=== PATIENT | female | born 1940 | race Caucasian/White ===

== ENCOUNTER → 2016-12-09 | Outpatient (CLI) | payer OTHER, BC ==
--- NOTE | 2016-12-09 09:36 | RAD ---
HISTORY: Left knee pain, nontraumatic Study: Left knee three view Comparison: None Findings: There is no evidence for fracture, lytic, or blastic lesion. No joint erosion or joint effusion is p resent. There is marked degenerative medial compartment narrowing with some associated pointing of t he tibial spines and femoral osteophyte formation. IMPRESSION: Marked degenerative medial compartment narrowing Reported By:
== END ==
LOC: RAD 08:51
PROVIDERS: ATTEND Specialist
DX: M25.562 Pain in left knee (principal)
CPT/HCPCS: 73564

== ENCOUNTER 2018-01-11 11:02 | Inpatient (IN) ==
[2018-01-11] MEDS ORDERED: TUSSIONEX PENNKINETIC SUSP PO PRN (12:22)
[2018-01-11] MEDS ORDERED: SALINE 3% 15 ML NEB TX ONE (12:29)
[2018-01-11] MEDS ORDERED: DUONEB 0.5 MG/3 MG ONE (12:29)
[2018-01-11 12:48] LABS: BASOPHILS % (AUTO) 0.7 % (0.2-1.0); EOSINOPHILS # (AUTO) 0.1 x10^3/uL (0.0-0.2); EOSINOPHILS % (AUTO) 1.2 % (0.9-2.9); HEMATOCRIT 35.3 % (36.0-47.0); LYMPHOCYTES # (AUTO) 1.5 X10^3/uL (1.3-2.9); MEAN CORPUSCULAR HEMOGLOBIN 32.4 pg (27.0-34.0); MEAN CORPUSCULAR VOLUME 95.2 fL (80.0-100.0); MEAN PLATELET VOLUME 6.7 fL (7.4-11.0); MONOCYTES # (AUTO) 0.7 x10^3/uL (0.3-0.8); MONOCYTES % (AUTO) 11.1 % (0.0-13.0); NEUTROPHILS # (AUTO) 3.8 x10^3/uL (2.2-4.8); PLATELET COUNT 250 X10^3/uL (150.0-450.0); RED BLOOD COUNT 3.71 X10^6/uL (3.5-5.4); RED CELL DISTRIBUTION WIDTH 13.3 % (11.6-16.5); WHITE BLOOD COUNT 6.1 X10^3/uL (3.6-10.0)
[2018-01-11 13:02] LABS: ALANINE AMINOTRANSFERASE 23 Units/L (12-78); ALBUMIN 3.6 g/dL (3.4-5.0); ALKALINE PHOSPHATASE 79 Units/L (46-116); ASPARTATE AMINO TRANSFERASE 12 Units/L (15-37); BLOOD UREA NITROGEN 18 mg/dL (7-18); CALCIUM 9.1 mg/dL (8.5-10.1); CARBON DIOXIDE 30.9 mmol/L (21-32); CHLORIDE 103 mmol/L (98-107); COR NA(FOR HYPERGLY) 141 mmol/L (136-145); CREATININE 0.67 mg/dL (0.55-1.02); SODIUM 141 mmol/L (136-145); TOTAL PROTEIN 7.2 g/dL (6.4-8.2); eGFR NON BLACK RACES > 60 (>60)
[2018-01-11] MEDS ORDERED: NS 1/2 1000 ML IV 1,000 ML IV ONE (13:44)
[2018-01-11] MEDS ORDERED: NS 100 ML IV + SPIKE MINIBAG* 100 ML IV ONE ×2 (13:45→20:52)
[2018-01-11] MEDS: NS 1/2 1000 ML IV 1,000 ML IV SCH (14:08)
[2018-01-11] MEDS: ZOSYN VIAL 4.5 GRAMS IV SCH ×2 (14:09→21:14)
[2018-01-11] MEDS: ROBITUSSIN DM PO SCH ×3 (14:09→21:14)
[2018-01-11] MEDS: DUONEB 0.5 MG/3 MG NEB SCH ×3 (14:10→21:55)
--- NOTE | 2018-01-11 14:20 | CT ---
HEAD CT WITHOUT IV CONTRAST CLINICAL INDICATION: Headache and sinusitis TECHNIQUE: Axial CT images from skull base to vertex without IV contrast.Dose reduction techniques in cluding Automated Exposure Control (AEC) and adjustment of mA and kV were utlized. COMPARISON: None FINDINGS: Diffuse patchy and confluent white matter hypoattenuation with associated volume loss. There is no e vidence of acute infarction, intracranial hemorrhage, mass or mass effect, or abnormal extra-axial co llection. The density of the larger dural venous sinuses is normal. Age-related, ex-vacuo dilatation of the ventricles and sulci. The skull base and calvarium are normal. The included paranasal sinuses and mastoid air cells are predominantly clear. IMPRESSION: 1. No acute intracranial abnormality. 2. No evidence of acute or chronic sinus disease. 3. Chronic microangiopathic changes and ex vacuo dilatation of the ventricles and sulci. Reported By:
[2018-01-11 14:39] VITALS: BMI 29.6
--- NOTE | 2018-01-11 14:51 | RAD ---
Exam: Chest two views History: 77-year-old female with possible pneumonia. Cough. Comparison: None Findings: Heart size and pulmonary vasculature within normal limits. Lungs are clear with no infiltrate or sign ificant effusion on either side. Bony thorax is unremarkable as well. Impression: No acute cardiopulmonary abnormality is seen on this exam. Reported By:
[2018-01-12] MEDS: DUONEB 0.5 MG/3 MG NEB SCH ×6 (01:22→21:44)
[2018-01-12] MEDS ORDERED: NS 100 ML IV + SPIKE MINIBAG* 100 ML IV ONE ×3 (05:26→20:25)
[2018-01-12 05:28] LABS: BASOPHILS % (AUTO) 0.9 % (0.2-1.0); EOSINOPHILS # (AUTO) 0.1 x10^3/uL (0.0-0.2); EOSINOPHILS % (AUTO) 2.5 % (0.9-2.9); HEMATOCRIT 33.9 % (36.0-47.0); HEMOGLOBIN 11.6 g/dL (12.0-16.0); LYMPHOCYTES # (AUTO) 1.8 X10^3/uL (1.3-2.9); LYMPHOCYTES % (AUTO) 32.2 % (21.0-51.0); MEAN CORPUSCULAR HEMOGLOBIN 32.3 pg (27.0-34.0); MEAN CORPUSCULAR HGB CONC 34.3 g/dL (33.0-35.0); MEAN CORPUSCULAR VOLUME 94.4 fL (80.0-100.0); MEAN PLATELET VOLUME 6.9 fL (7.4-11.0); MONOCYTES # (AUTO) 0.6 x10^3/uL (0.3-0.8); MONOCYTES % (AUTO) 10.6 % (0.0-13.0); NEUTROPHILS % (AUTO) 53.8 % (42.0-75.0); PLATELET COUNT 240 X10^3/uL (150.0-450.0); RED BLOOD COUNT 3.59 X10^6/uL (3.5-5.4); RED CELL DISTRIBUTION WIDTH 13.3 % (11.6-16.5); WHITE BLOOD COUNT 5.5 X10^3/uL (3.6-10.0)
[2018-01-12] MEDS: ZOSYN VIAL 4.5 GRAMS IV SCH ×3 (05:32→21:01)
[2018-01-12 05:58] LABS: ALANINE AMINOTRANSFERASE 22 Units/L (12-78); ALBUMIN 3.4 g/dL (3.4-5.0); ALKALINE PHOSPHATASE 71 Units/L (46-116); ASPARTATE AMINO TRANSFERASE 14 Units/L (15-37); BLOOD UREA NITROGEN 14 mg/dL (7-18); CALCIUM 8.6 mg/dL (8.5-10.1); CARBON DIOXIDE 31.9 mmol/L (21-32); CHLORIDE 105 mmol/L (98-107); CREATININE 0.71 mg/dL (0.55-1.02); SODIUM 143 mmol/L (136-145); TOTAL PROTEIN 6.8 g/dL (6.4-8.2); eGFR NON BLACK RACES > 60 (>60)
[2018-01-12] MEDS: NS 1/2 1000 ML IV 1,000 ML IV SCH ×3 (07:07→15:45)
[2018-01-12] MEDS ORDERED: ANTIVERT TAB 25 MG PO PRN (10:10)
[2018-01-12] MEDS ORDERED: XANAX PO PRN (10:10)
[2018-01-12] MEDS: ROBITUSSIN DM PO SCH ×4 (10:11→20:50)
[2018-01-12] MEDS ORDERED: POTASSIUM CL 10 MEQ PO SCH (10:15)
[2018-01-12] MEDS ORDERED: PAROXETINE HCL 40 MG PO SCH (10:15)
[2018-01-12] MEDS: ARICEPT TAB 10 MG PO SCH (11:24)
[2018-01-12] MEDS: FLEXERIL TAB 10 MG PO SCH ×2 (11:24→20:51)
[2018-01-12] MEDS: INDERAL TAB 10 MG PO SCH ×2 (11:24→20:50)
[2018-01-12] MEDS: SINGULAIR TAB 10 MG PO SCH (11:24)
[2018-01-12] MEDS: NORVASC TAB 5 MG PO SCH (11:24)
[2018-01-12] MEDS: LASIX PO SCH (11:25)
--- NOTE | 2018-01-12 13:31 | DR.UPDATE ---
H&P Update History and Physical Update: WAS SEEN IN THE OFFICE TODAY. A H&P WAS COMPLETED PRIOR TO ADMISSION. PATIENT HAS BEEN SEEN AND EXAMINED WITH NO CHANGES NOTED TO H&P. Changes noted: NO Yes with the following:
[2018-01-12] MEDS ORDERED: NS 1/2 1000 ML IV 1,000 ML IV ONE (14:24)
[2018-01-12] MEDS: ZOCOR TAB 40 MG PO SCH (20:50)
[2018-01-12] MEDS: MICRO K EXTEN CAP 10 MEQ PO SCH (20:51)
[2018-01-12] MEDS ORDERED: COUMADIN TAB 4 MG PO SCH ×2 (21:00)
[2018-01-13] MEDS: DUONEB 0.5 MG/3 MG NEB SCH ×6 (04:14→21:15)
[2018-01-13] MEDS ORDERED: NS 100 ML IV + SPIKE MINIBAG* 100 ML IV ONE ×3 (05:15→20:47)
[2018-01-13 05:22] LABS: BASOPHILS % (AUTO) 0.6 % (0.2-1.0); EOSINOPHILS # (AUTO) 0.2 x10^3/uL (0.0-0.2); EOSINOPHILS % (AUTO) 3.6 % (0.9-2.9); HEMATOCRIT 33.6 % (36.0-47.0); HEMOGLOBIN 11.6 g/dL (12.0-16.0); LYMPHOCYTES % (AUTO) 34.4 % (21.0-51.0); MEAN CORPUSCULAR HEMOGLOBIN 32.5 pg (27.0-34.0); MEAN CORPUSCULAR HGB CONC 34.4 g/dL (33.0-35.0); MEAN CORPUSCULAR VOLUME 94.5 fL (80.0-100.0); MEAN PLATELET VOLUME 6.6 fL (7.4-11.0); MONOCYTES # (AUTO) 0.6 x10^3/uL (0.3-0.8); NEUTROPHILS # (AUTO) 2.9 x10^3/uL (2.2-4.8); NEUTROPHILS % (AUTO) 50.4 % (42.0-75.0); PLATELET COUNT 252 X10^3/uL (150.0-450.0); RED BLOOD COUNT 3.55 X10^6/uL (3.5-5.4); RED CELL DISTRIBUTION WIDTH 13.2 % (11.6-16.5); WHITE BLOOD COUNT 5.8 X10^3/uL (3.6-10.0)
[2018-01-13 05:28] LABS: ALANINE AMINOTRANSFERASE 22 Units/L (12-78); ALBUMIN 3.3 g/dL (3.4-5.0); ALKALINE PHOSPHATASE 68 Units/L (46-116); ASPARTATE AMINO TRANSFERASE 14 Units/L (15-37); BLOOD UREA NITROGEN 10 mg/dL (7-18); CALCIUM 8.4 mg/dL (8.5-10.1); CARBON DIOXIDE 32.7 mmol/L (21-32); CHLORIDE 106 mmol/L (98-107); CREATININE 0.75 mg/dL (0.55-1.02); SODIUM 144 mmol/L (136-145); TOTAL PROTEIN 6.4 g/dL (6.4-8.2); eGFR NON BLACK RACES > 60 (>60)
[2018-01-13] MEDS: ZOSYN VIAL 4.5 GRAMS IV SCH ×3 (05:29→21:43)
--- NOTE | 2018-01-13 07:25 | RAD ---
Examination: AP chest History: SOB Comparison reference 01/11/2018 Findings: Stable heart size with clear lungs and pleural spaces. Impression: No significant interval change or acute chest findings. Reported By:
[2018-01-13] MEDS: PAXIL PO SCH (09:37)
[2018-01-13] MEDS: ROBITUSSIN DM PO SCH ×4 (09:37→21:14)
[2018-01-13] MEDS: INDERAL TAB 10 MG PO SCH ×2 (09:38→21:09)
[2018-01-13] MEDS: MICRO K EXTEN CAP 10 MEQ PO SCH ×2 (09:38→21:09)
[2018-01-13] MEDS: ARICEPT TAB 10 MG PO SCH (09:38)
[2018-01-13] MEDS: SINGULAIR TAB 10 MG PO SCH (09:38)
[2018-01-13] MEDS: LASIX PO SCH (09:38)
[2018-01-13] MEDS: NORVASC TAB 5 MG PO SCH (09:38)
[2018-01-13] MEDS: FLEXERIL TAB 10 MG PO SCH ×2 (09:39→21:09)
[2018-01-13] MEDS ORDERED: LOVENOX INJ 60 MG SYR SC SCH (13:00)
--- NOTE | 2018-01-13 15:24 | PCM.PROG ---
Progress Note - Progress Note for Day of Date: 01/12/18 - Subjective Subjective: WAS ADMITTED FOR BRONCHOPNEUMONIA AND SINUSITIS, FAILED OUTPATIENT TREATMENT. TODAY, SHE IS ALERT AND ORIENTED, LYING IN BED ON MORNING ROUNDS. SHE CONTINUES WITH COMPLAINTS OF COUGH, SHORTNESS OF BREATH, NASAL CONGESTION, AND HEADACHE. ON EXAMINATION, HEART IS REGULAR IN RATE AND RHYTHM. BILATERAL LUNGS ARE NOTED WITH SCATTERED WHEEZING AND RHONCHI THROUGHOUT. ABDOMEN IS ROUND, SOFT, AND NON-TENDER WITH NORMAL BOWEL SOUNDS NOTED IN ALL QUADRANTS. HER VITALS TODAY ARE 97.9-64-18-97%-161/68. LABS WERE OBTAINED. SHE IS HEMODYANMICALLY STABLE TODAY. A BRAIN CT WAS OBTAINED ON ADMISSION AND REVEALED NO ACUTE INTRACRANIAL ABNORMALITY. NO EVIDENCE OF ACUTE OR CHRONIC SINUS DISEASE. CHRONIC MICROANGIOPATHIC CHANGES AND EX VACUO DILATION OF THE VENTRICLES AND SULCI. SHE IS CURRENTLY RECEIVING IV ANTIBIOTICS, RESPIRATORY TREATMENTS, AND SUPPLEMENTAL OXYGEN. WE WILL CONTINUE WITH CURRENT PLAN OF CARE TODAY. OTHERWISE, WE WILL FOLLOW UP WITH AM LABS AND CONTINUE TO MONITOR PATIENT. - Past Medical Family Social History Past Med/Fam/Surg Hx: No changes since H&P Allergies: Allergies levofloxacin [From Levaquin] Adverse Reaction (Verified 01/11/18 12:22) - Review of Systems ROS: No change since H&P - Vital Signs and I&O's Vital Signs: Temperature 97.9 F Pulse Rate [Left Brachial] 64 Pulse Rate 70 Respiratory Rate 18 Blood Pressure [Left Arm] 134/65 O2 Sat by Pulse Oximetry 97 Intake and Output: Intake & Output 01/11/18 01/12/18 01/13/18 01/14/18 11:59 11:59 11:59 11:59 Intake Total 1810 / 1810 2820 / 2820 Output Total 700 / 700 Balance 1110 / 1110 2820 / 2820 - Physical Exam Oriented: Normal Eyes: Normal Ear: Normal Nose: Other (NASAL CONGESTION ) Throat: Normal Respiratory: Right, Left, Wheezes, Rhonchi Cardiovascular: Normal : Normal Auscultation: Bowel Sounds: Normal Palpation: Normal Tenderness: Normal Skin: Normal Musculoskeletal: Normal Psychiatric: Normal Mood Description: Calm Affect: Normal Speech Pattern: Clear, Appropriate - Laboratory and Diagnostics Result Diagrams: 01/13/18 04:55 01/13/18 04:55 Labs: 01/11/18 14:45 Sputum - Expectorated Sputum Sputum Culture - Final 01/11/18 14:45 Sputum - Expectorated Sputum - Final 01/11/18 12:46 Blood Blood Culture - Preliminary 01/11/18 12:36 Blood Blood Culture - Preliminary Laboratory WBC 5.8 X10^3/uL (3.6-10.0) 01/13/18 04:55 RBC 3.55 X10^6/uL (3.5-5.4) 01/13/18 04:55 Hgb 11.6 g/dL (12.0-16.0) L 01/13/18 04:55 Hct 33.6 % (36.0-47.0) L 01/13/18 04:55 MCV 94.5 fL (80.0-100.0) 01/13/18 04:55 MCH 32.5 pg (27.0-34.0) 01/13/18 04:55 MCHC 34.4 g/dL (33.0-35.0) 01/13/18 04:55 RDW 13.2 % (11.6-16.5) 01/13/18 04:55 Plt Count 252 X10^3/uL (150.0-450.0) 01/13/18 04:55 MPV 6.6 fL (7.4-11.0) L 01/13/18 04:55 Neut % (Auto) 50.4 % (42.0-75.0) 01/13/18 04:55 Lymph % (Auto) 34.4 % (21.0-51.0) 01/13/18 04:55 [place] % (Auto) 11.0 % (0.0-13.0) 01/13/18 04:55 Eos % (Auto) 3.6 % (0.9-2.9) H 01/13/18 04:55 Baso % (Auto) 0.6 % (0.2-1.0) 01/13/18 04:55 Neut # (Auto) 2.9 x10^3/uL (2.2-4.8) 01/13/18 04:55 Lymph # (Auto) 2.0 X10^3/uL (1.3-2.9) 01/13/18 04:55 [place] # (Auto) 0.6 x10^3/uL (0.3-0.8) 01/13/18 04:55 Eos # (Auto) 0.2 x10^3/uL (0.0-0.2) 01/13/18 04:55 Baso # (Auto) 0.0 X10^3/uL (0.0-0.1) 01/13/18 04:55 Absolute Nucleated RBC 0.0 /100WBC 01/13/18 04:55 INR Target Range - 01/13/18 07:36 INR 1.58 (0.8-1.3) H 01/13/18 07:36 Sodium 144 mmol/L (136-145) 01/13/18 04:55 Corrected Sodium TNP 01/13/18 04:55 Potassium 3.7 mmol/L (3.5-5.1) 01/13/18 04:55 Chloride 106 mmol/L (98-107) 01/13/18 04:55 Carbon Dioxide 32.7 mmol/L (21-32) H 01/13/18 04:55 BUN 10 mg/dL (7-18) 01/13/18 04:55 Creatinine 0.75 mg/dL (0.55-1.02) 01/13/18 04:55 Est GFR (MDRD) Af Amer > 60 (>60) 01/13/18 04:55 Est GFR (MDRD) Non-Af > 60 (>60) 01/13/18 04:55 Glucose 96 mg/dL (65-99) 01/13/18 04:55 Calcium 8.4 mg/dL (8.5-10.1) L 01/13/18 04:55 Corrected Calcium 9.0 mg/dL (8.5-10.1) 01/13/18 04:55 Total Bilirubin 0.30 mg/dL (0.2-1.0) 01/13/18 04:55 AST 14 Units/L (15-37) L 01/13/18 04:55 ALT 22 Units/L (12-78) 01/13/18 04:55 Alkaline Phosphatase 68 Units/L (46-116) 01/13/18 04:55 Total Protein 6.4 g/dL (6.4-8.2) 01/13/18 04:55 Albumin 3.3 g/dL (3.4-5.0) L 01/13/18 04:55 Globulin 3.1 g/dL (2.5-4.5) 01/13/18 04:55 Albumin/Globulin Ratio 1.1 Ratio (1.1-2.1) 01/13/18 04:55 - Plan (1) Pneumonia Status: Acute Qualifiers: Pneumonia type: due to unspecified organism Laterality: unspecified laterality Lung location: unspecified part of lung Qualified Code(s): J18.9 - Pneumonia, unspecified organism Plan: ZOSYN 4.5GM IV TID, SUPPLEMENTAL OXYGEN, RESPIRATORY TREATMENTS, CONTINUE TO MONITOR (2) Sinusitis Status: Acute Qualifiers: Sinusitis location: frontal Chronicity: acute Recurrence: non-recurrent Qualified Code(s): J01.10 - Acute frontal sinusitis, unspecified
[2018-01-13] MEDS ORDERED: NS 1/2 1000 ML IV 1,000 ML IV ONE (20:39)
[2018-01-13] MEDS ORDERED: COUMADIN TAB 4 MG PO SCH (21:00)
[2018-01-13] MEDS: ZOCOR TAB 40 MG PO SCH (21:09)
[2018-01-13] MEDS: NS 1/2 1000 ML IV 1,000 ML IV SCH (21:13)
[2018-01-14] MEDS: DUONEB 0.5 MG/3 MG NEB SCH ×2 (05:09→08:55)
[2018-01-14] MEDS ORDERED: NS 100 ML IV + SPIKE MINIBAG* 100 ML IV ONE (05:55)
[2018-01-14] MEDS: ZOSYN VIAL 4.5 GRAMS IV SCH (06:03)
[2018-01-14 07:23] LABS: BASOPHILS # (AUTO) 0.1 X10^3/uL (0.0-0.1); BASOPHILS % (AUTO) 0.9 % (0.2-1.0); EOSINOPHILS # (AUTO) 0.2 x10^3/uL (0.0-0.2); EOSINOPHILS % (AUTO) 2.7 % (0.9-2.9); HEMATOCRIT 36.5 % (36.0-47.0); HEMOGLOBIN 12.5 g/dL (12.0-16.0); LYMPHOCYTES # (AUTO) 2.1 X10^3/uL (1.3-2.9); LYMPHOCYTES % (AUTO) 33.9 % (21.0-51.0); MEAN CORPUSCULAR HEMOGLOBIN 32.2 pg (27.0-34.0); MEAN CORPUSCULAR HGB CONC 34.2 g/dL (33.0-35.0); MEAN CORPUSCULAR VOLUME 94.1 fL (80.0-100.0); MEAN PLATELET VOLUME 6.6 fL (7.4-11.0); MONOCYTES # (AUTO) 0.7 x10^3/uL (0.3-0.8); MONOCYTES % (AUTO) 11.1 % (0.0-13.0); NEUTROPHILS # (AUTO) 3.2 x10^3/uL (2.2-4.8); NEUTROPHILS % (AUTO) 51.4 % (42.0-75.0); PLATELET COUNT 277 X10^3/uL (150.0-450.0); RED BLOOD COUNT 3.88 X10^6/uL (3.5-5.4); RED CELL DISTRIBUTION WIDTH 13.6 % (11.6-16.5); WHITE BLOOD COUNT 6.2 X10^3/uL (3.6-10.0)
[2018-01-14 07:35] LABS: ALANINE AMINOTRANSFERASE 24 Units/L (12-78); ALBUMIN 3.5 g/dL (3.4-5.0); ALKALINE PHOSPHATASE 74 Units/L (46-116); ASPARTATE AMINO TRANSFERASE 13 Units/L (15-37); BLOOD UREA NITROGEN 11 mg/dL (7-18); CALCIUM 8.5 mg/dL (8.5-10.1); CARBON DIOXIDE 33.1 mmol/L (21-32); CHLORIDE 106 mmol/L (98-107); CREATININE 0.73 mg/dL (0.55-1.02); SODIUM 143 mmol/L (136-145); TOTAL PROTEIN 6.9 g/dL (6.4-8.2); eGFR NON BLACK RACES > 60 (>60)
--- NOTE | 2018-01-14 07:44 | RAD ---
Examination: AP chest History: SOB Comparison reference 01/13/2018 Findings: Continued upper normal heart size with clear lungs and pleural spaces. Impression: No change; no acute abnormality. Reported By:
[2018-01-14 08:23] VITALS: BP 181/82
[2018-01-14] MEDS: ARICEPT TAB 10 MG PO SCH (09:55)
[2018-01-14] MEDS: NORVASC TAB 5 MG PO SCH (09:55)
[2018-01-14] MEDS: SINGULAIR TAB 10 MG PO SCH (09:55)
[2018-01-14] MEDS: MICRO K EXTEN CAP 10 MEQ PO SCH (09:55)
[2018-01-14] MEDS: ROBITUSSIN DM PO SCH (09:55)
[2018-01-14] MEDS: FLEXERIL TAB 10 MG PO SCH (09:55)
[2018-01-14] MEDS: INDERAL TAB 10 MG PO SCH (09:56)
[2018-01-14] MEDS: LASIX PO SCH (09:56)
[2018-01-14] MEDS: PAXIL PO SCH (09:56)
--- NOTE | 2018-01-14 17:04 | PCM.PROG ---
Progress Note - Progress Note for Day of Date: 01/13/18 - Subjective Subjective: WAS ADMITTED FOR BRONCHOPNEUMONIA AND SINUSITIS, FAILED OUTPATIENT TREATMENT. TODAY, SHE IS ALERT AND ORIENTED, LYING IN BED ON MORNING ROUNDS. SHE CONTINUES WITH COMPLAINTS OF COUGH, SHORTNESS OF BREATH, NASAL CONGESTION, AND HEADACHE. SHE REPORTS SLIGHT IMPROVEMENT SINCE ADMISSION. ON EXAMINATION, HEART IS REGULAR IN RATE AND RHYTHM. BILATERAL LUNGS ARE NOTED WITH SCATTERED WHEEZING AND RHONCHI THROUGHOUT. ABDOMEN IS ROUND, SOFT, AND NON- TENDER WITH NORMAL BOWEL SOUNDS NOTED IN ALL QUADRANTS. HER VITALS TODAY ARE 97.9-64-18-97%-134/65. LABS WERE OBTAINED. SHE IS HEMODYANMICALLY STABLE TODAY. SHE IS CURRENTLY RECEIVING IV ANTIBIOTICS, RESPIRATORY TREATMENTS, AND SUPPLEMENTAL OXYGEN. WE WILL CONTINUE WITH CURRENT PLAN OF CARE TODAY. OTHERWISE , WE WILL FOLLOW UP WITH AM LABS AND CONTINUE TO MONITOR PATIENT. - Past Medical Family Social History Past Med/Fam/Surg Hx: No changes since H&P Allergies: Allergies levofloxacin [From Levaquin] Adverse Reaction (Verified 01/11/18 12:22) - Review of Systems ROS: No change since H&P - Vital Signs and I&O's Vital Signs: Temperature 98.2 F Pulse Rate [Left Brachial] 58 Pulse Rate 71 Respiratory Rate 21 Blood Pressure [Left Arm] 181/82 O2 Sat by Pulse Oximetry 91 Intake and Output: Intake & Output 01/12/18 01/13/18 01/14/18 01/15/18 11:59 11:59 11:59 11:59 Intake Total 1810 / 1810 2820 / 2820 2640 / 2640 Output Total 700 / 700 Balance 1110 / 1110 2820 / 2820 2640 / 2640 - Physical Exam Oriented: Normal Eyes: Normal Ear: Normal Nose: Other (NASAL CONGESTION ) Throat: Normal Respiratory: Right, Left, Wheezes, Rhonchi Cardiovascular: Normal : Normal Auscultation: Bowel Sounds: Normal Palpation: Normal Tenderness: Normal Skin: Normal Musculoskeletal: Normal Psychiatric: Normal Mood Description: Calm Affect: Normal Speech Pattern: Clear, Appropriate - Laboratory and Diagnostics Result Diagrams: 01/14/18 07:04 01/14/18 07:04 Labs: 01/11/18 14:45 Sputum - Expectorated Sputum Sputum Culture - Final 01/11/18 14:45 Sputum - Expectorated Sputum - Final 01/11/18 12:46 Blood Blood Culture - Preliminary 01/11/18 12:36 Blood Blood Culture - Preliminary Laboratory WBC 6.2 X10^3/uL (3.6-10.0) 01/14/18 07:04 RBC 3.88 X10^6/uL (3.5-5.4) 01/14/18 07:04 Hgb 12.5 g/dL (12.0-16.0) 01/14/18 07:04 Hct 36.5 % (36.0-47.0) 01/14/18 07:04 MCV 94.1 fL (80.0-100.0) 01/14/18 07:04 MCH 32.2 pg (27.0-34.0) 01/14/18 07:04 MCHC 34.2 g/dL (33.0-35.0) 01/14/18 07:04 RDW 13.6 % (11.6-16.5) 01/14/18 07:04 Plt Count 277 X10^3/uL (150.0-450.0) 01/14/18 07:04 MPV 6.6 fL (7.4-11.0) L 01/14/18 07:04 Neut % (Auto) 51.4 % (42.0-75.0) 01/14/18 07:04 Lymph % (Auto) 33.9 % (21.0-51.0) 01/14/18 07:04 [place] % (Auto) 11.1 % (0.0-13.0) 01/14/18 07:04 Eos % (Auto) 2.7 % (0.9-2.9) 01/14/18 07:04 Baso % (Auto) 0.9 % (0.2-1.0) 01/14/18 07:04 Neut # (Auto) 3.2 x10^3/uL (2.2-4.8) 01/14/18 07:04 Lymph # (Auto) 2.1 X10^3/uL (1.3-2.9) 01/14/18 07:04 [place] # (Auto) 0.7 x10^3/uL (0.3-0.8) 01/14/18 07:04 Eos # (Auto) 0.2 x10^3/uL (0.0-0.2) 01/14/18 07:04 Baso # (Auto) 0.1 X10^3/uL (0.0-0.1) 01/14/18 07:04 Absolute Nucleated RBC 0.1 /100WBC 01/14/18 07:04 INR Target Range - 01/13/18 07:36 INR 1.58 (0.8-1.3) H 01/13/18 07:36 Sodium 143 mmol/L (136-145) 01/14/18 07:04 Corrected Sodium TNP 01/14/18 07:04 Potassium 3.7 mmol/L (3.5-5.1) 01/14/18 07:04 Chloride 106 mmol/L (98-107) 01/14/18 07:04 Carbon Dioxide 33.1 mmol/L (21-32) H 01/14/18 07:04 BUN 11 mg/dL (7-18) 01/14/18 07:04 Creatinine 0.73 mg/dL (0.55-1.02) 01/14/18 07:04 Est GFR (MDRD) Af Amer > 60 (>60) 01/14/18 07:04 Est GFR (MDRD) Non-Af > 60 (>60) 01/14/18 07:04 Glucose 90 mg/dL (65-99) 01/14/18 07:04 Calcium 8.5 mg/dL (8.5-10.1) 01/14/18 07:04 Corrected Calcium TNP 01/14/18 07:04 Total Bilirubin 0.50 mg/dL (0.2-1.0) 01/14/18 07:04 AST 13 Units/L (15-37) L 01/14/18 07:04 ALT 24 Units/L (12-78) 01/14/18 07:04 Alkaline Phosphatase 74 Units/L (46-116) 01/14/18 07:04 Total Protein 6.9 g/dL (6.4-8.2) 01/14/18 07:04 Albumin 3.5 g/dL (3.4-5.0) 01/14/18 07:04 Globulin 3.4 g/dL (2.5-4.5) 01/14/18 07:04 Albumin/Globulin Ratio 1.0 Ratio (1.1-2.1) L 01/14/18 07:04 - Plan (1) Pneumonia Status: Acute Qualifiers: Pneumonia type: due to unspecified organism Laterality: unspecified laterality Lung location: unspecified part of lung Qualified Code(s): J18.9 - Pneumonia, unspecified organism Plan: ZOSYN 4.5GM IV TID, SUPPLEMENTAL OXYGEN, RESPIRATORY TREATMENTS, CONTINUE TO MONITOR (2) Sinusitis Status: Acute Qualifiers: Sinusitis location: frontal Chronicity: acute Recurrence: non-recurrent Qualified Code(s): J01.10 - Acute frontal sinusitis, unspecified
--- NOTE | 2018-02-12 00:49 | DR.CARTERD ---
- Discharge Summary for: Discharge Summary for Date of:: 01/14/18 - Admission Date Date of Admission: 01/11/18 - Admission Diagnoses Admission Diagnosis: (1) Pneumonia (2) Sinusitis - Discharge Date Discharge Date: 01/14/18 - Discharge Diagnoses Discharge Diagnosis: (1) Pneumonia (2) Sinusitis - Hospital Course Hospital Course: MS. HUFFMAN WAS ADMITTED FOR BRONCHOPNEUMONIA AND SINUSITIS, FAILED OUTPATIENT TREATMENT. PATIENT WAS STARTED ON THE PNEUMONIA PROTOCOL WITH IV ANTIBIOTICS, RESPIRATORY TREATMENTS, AND SUPPLEMENTAL OXYGEN. ON DAY TWO, PATIENT WAS ALERT AND ORIENTED, LYING IN BED ON MORNING ROUNDS. SHE CONTINUED WITH COMPLAINTS OF COUGH, SHORTNESS OF BREATH, NASAL CONGESTION, AND HEADACHE. ON EXAMINATION, HEART WAS REGULAR IN RATE AND RHYTHM. BILATERAL LUNGS WERE NOTED WITH SCATTERED WHEEZING AND RHONCHI THROUGHOUT. ABDOMEN WAS ROUND, SOFT, AND NON-TENDER WITH NORMAL BOWEL SOUNDS NOTED IN ALL QUADRANTS. HER VITALS WERE 97.9-64-18-97%-161/ 68. A BRAIN CT WAS OBTAINED ON ADMISSION AND REVEALED NO ACUTE INTRACRANIAL ABNORMALITY. NO EVIDENCE OF ACUTE OR CHRONIC SINUS DISEASE. CHRONIC MICROANGIOPATHIC CHANGES AND EX VACUO DILATION OF THE VENTRICLES AND SULCI. SHE CONTINUED ON IV ANTIBIOTICS, RESPIRATORY TREATMENTS, AND SUPPLEMENTAL OXYGEN. ON DAY THREE, MS. HUFFMAN CONTINUED TREATMENT FOR BRONCHOPNEUMONIA AND SINUSITIS. SHE CONITNUED WITH COMPLAINTS OF COUGH, SHORTNESS OF BREATH, NASAL CONGESTION, AND HEADACHE. SHE REPORTED SLIGHT IMPROVEMENT SINCE ADMISSION. ON EXAMINATION, HEART WAS REGULAR IN RATE AND RHYTHM. BILATERAL LUNGS WERE NOTED WITH SCATTERED WHEEZING AND RHONCHI THROUGHOUT. ABDOMEN WAS ROUND, SOFT, AND NON -TENDER WITH NORMAL BOWEL SOUNDS NOTED IN ALL QUADRANTS. HER VITALS WERE 97.9-64 -18-97%-134/65. LABS WNL. SHE CONTINUED ON IV ANTIBIOTICS, RESPIRATORY TREATMENTS, AND SUPPLEMENTAL OXYGEN. ON DAY FOUR, PATIENT REPORTED SHE WAS FEELING MUCH BETTER. FINAL BLOOD AND SPUTUM CULTURES NEGATIVE. ON AUSCULTATION, LUNGS WERE NOTED WITH SCATTERED RHONCHI. COUGH WAS INTERMITTENT. SPUTUM WAS THIN. VITALS STABLE. LABS WNL. WE PLANNED FOR DISCHARGE. INSTRUCTIONS FOR MEDICATIONS AND FOLLOW UP WERE DISCUSSED WITH PATIENT AND FAMILY, BOTH VOICED UNDERSTANDING. PATIENT DISCHARGED HOME IN STABLE CONDITION WITH FAMILY. - Discharge Medications Discharge Medications: Home Medication List Potassium Cl Er 10 meq PO BID 01/11/18 [History] alprazolam 0.5 mg PO BID PRN 01/11/18 [History] amlodipine 5 mg PO DAILY 01/11/18 [History] cyclobenzaprine 10 mg PO BID 01/11/18 [History] donepezil 10 mg PO DAILY 01/11/18 [History] furosemide 40 mg PO DAILY 01/11/18 [History] meclizine 25 mg PO TID PRN 01/11/18 [History] montelukast 10 mg PO DAILY 01/11/18 [History] paroxetine HCl 40 mg PO DAILY 01/11/18 [History] propranolol 10 mg PO BID 01/11/18 [History] simvastatin 40 mg PO DAILY 01/11/18 [History] warfarin 4 mg PO DAILY 01/11/18 [History] amoxicillin-pot clavulanate [Augmentin] 1 tab PO BID #20 tab 01/14/18 [Rx] hydrocodone-chlorpheniramine 5 ml PO Q12H PRN #240 ml 01/14/18 [Rx] ipratropium-albuterol 1 ea NEB TID #50 ml 01/14/18 [Rx] Prescriptions: amoxicillin-pot clavulanate [Augmentin] Be Chamberlain hydrocodone-chlorpheniramine Be Chamberlain ipratropium-albuterol Be Chamberlain - Discharge Disposition Discharge Disposition: PATIENT IS TO FOLLOW UP IN OUR OFFICE IN ONE WEEK.
== END 2018-01-14 11:10 | disposition home or self-care (01) | DRG 195 ==
LOC: MED/SURG 11:32
PROVIDERS: ADMIT Internal Medicine; ATTEND Internal Medicine
DX: R06.02 Shortness of breath; J18.0 Bronchopneumonia, unspecified organism; R51 Headache; J01.10 Acute frontal sinusitis, unspecified; Z79.01 Long term (current) use of anticoagulants
CPT/HCPCS: 36415; 70450; 71010; 71020; 71045; 71046; 80053; 85025; 85610; 87040; 87070; 87205; 94640; 94760; A4222; J1650; J2543; J7050; J7620

== ENCOUNTER 2018-08-01 17:49 | Observation (INO) ==
[2018-08-01 20:02] LABS: BASOPHILS # (AUTO) 0.1 X10^3/uL (0.0-0.1); BASOPHILS % (AUTO) 0.9 % (0.2-1.0); EOSINOPHILS # (AUTO) 0.1 x10^3/uL (0.0-0.2); HEMATOCRIT 39.1 % (36.0-47.0); HEMOGLOBIN 13.3 g/dL (12.0-16.0); LYMPHOCYTES # (AUTO) 1.8 X10^3/uL (1.3-2.9); LYMPHOCYTES % (AUTO) 31.5 % (21.0-51.0); MEAN CORPUSCULAR HEMOGLOBIN 33.2 pg (27.0-34.0); MEAN CORPUSCULAR HGB CONC 34.1 g/dL (33.0-35.0); MEAN CORPUSCULAR VOLUME 97.3 fL (80.0-100.0); MEAN PLATELET VOLUME 7.1 fL (7.4-11.0); MONOCYTES # (AUTO) 0.6 x10^3/uL (0.3-0.8); MONOCYTES % (AUTO) 10.8 % (0.0-13.0); NEUTROPHILS # (AUTO) 3.1 x10^3/uL (2.2-4.8); NEUTROPHILS % (AUTO) 54.8 % (42.0-75.0); PLATELET COUNT 247 X10^3/uL (150.0-450.0); RED BLOOD COUNT 4.02 X10^6/uL (3.5-5.4); RED CELL DISTRIBUTION WIDTH 13.4 % (11.6-16.5); WHITE BLOOD COUNT 5.7 X10^3/uL (3.6-10.0)
[2018-08-01 20:08] LABS: ALANINE AMINOTRANSFERASE 31 Units/L (12-78); ALBUMIN 3.9 g/dL (3.4-5.0); ALKALINE PHOSPHATASE 88 Units/L (46-116); ASPARTATE AMINO TRANSFERASE 24 Units/L (15-37); BLOOD UREA NITROGEN 8 mg/dL (7-18); CALCIUM 8.8 mg/dL (8.5-10.1); CARBON DIOXIDE 25.8 mmol/L (21-32); CHLORIDE 101 mmol/L (98-107); COR NA(FOR HYPERGLY) 139 mmol/L (136-145); CREATININE 0.94 mg/dL (0.55-1.02); SODIUM 138 mmol/L (136-145); eGFR NON BLACK RACES > 60 (>60)
[2018-08-01] MEDS: NS 1000 ML 1,000 ML IV SCH (20:45)
[2018-08-01] MEDS ORDERED: TYLENOL 325 MG TAB PO PRN (20:54)
[2018-08-01 21:01] VITALS: BMI 35.1
--- NOTE | 2018-08-01 21:29 | CT ---
History: Mental status change Exam: CT head without contrast Comparison: 01/11/2018 Technique: Routine transaxial images were obtained through the brain without contrast. Automated dose control was utilized. Findings: The ventricles are mildly enlarged with diffuse mild prominence of the cortical sulci. There is moderate periventricular low density bilaterally. No intracranial hemorrhage or edema is seen. There is no extra-axial fluid collection or mass. The midline structures are unremarkable. The bones are intact. IMPRESSION: Mild atrophy and moderate chronic microischemic changes the deep white matter which is unchanged with no acute abnormality seen. Reported By:
[2018-08-01] MEDS ORDERED: COLACE CAP 100 MG PO PRN (21:37)
[2018-08-01] MEDS ORDERED: COLACE CAP 100 MG PO ONE (22:12)
[2018-08-02] MEDS ORDERED: FLEXERIL TAB 10 MG PO PRN (09:09)
[2018-08-02] MEDS ORDERED: XANAX PO PRN (09:09)
[2018-08-02] MEDS ORDERED: POTASSIUM CL 10 MEQ PO SCH (10:00)
[2018-08-02] MEDS ORDERED: MICRO K EXTEN CAP 10 MEQ PO ONE (10:01)
--- NOTE | 2018-08-02 11:07 | MRI ---
HISTORY: Syncope, AMS, malignant hypertension Study: MRI Brain without contrast Comparison: Head CT 08/01/2018 Technique: Multiplanar multi-sequence MRI of the brain was performed with standard departmental protocol Findings: There is generalized cerebral volume loss. There are patchy and confluent areas of subcortical and periventricular white matter T2 and FLAIR hyperintense signal that are nonspecific in nature but most likely related to microvascular ischemic changes. No evidence of mass or intracranial hemorrhage. No restricted diffusion to suggest recent infarction.No extra-axial fluid collections are observed. Prominence of the ventricles and cortical sulci is commensurate with volume loss. The cerebellopontine angles are normal in appearance without brainstem mass or evidence for acoustic neuroma. Please note evaluation is limited without IV contrast. The flow voids on T2 weighted imaging appear normal. The midline structures appear unremarkable. The soft tissues are intact. The visualized paranasal sinuses and mastoid air cells are clear. Orbits and globes are intact. IMPRESSION: 1. Moderate cerebral volume loss and nonspecific white matter signal changes as described likely on the basis of chronic microvascular disease. No evidence of acute intracranial abnormality. Reported By:
[2018-08-02] MEDS: TAB-A-VITE PO SCH (11:55)
[2018-08-02] MEDS: MICRO K EXTEN CAP 10 MEQ PO SCH ×2 (11:55→20:32)
[2018-08-02] MEDS: TOPROL XL PO SCH (11:56)
--- NOTE | 2018-08-02 16:49 | VAS ---
History: Dizziness Study: Carotid duplex ultrasound Comparison: None Findings: Images show a tortuous right common carotid artery. No significant plaque is demonstrated. The vertebral arteries could not be visualized. Peak systolic velocity in the distal right common carotid artery is 79.4 centimeters/second and in the right internal carotid artery is 93 centimeters/second for ratio of 1.2. Peak systolic velocity in the left internal carotid artery is 103.7 centimeters/second compared to 53.4 in the distal left common carotid artery for a ratio of 1.9. Diastolic velocities are unremarkable. Impression: Tortuous vessels but no evidence for significant stenosis Nonvisualization of the vertebral arteries Reported By:
--- NOTE | 2018-08-02 18:54 | PCM.PROG ---
Progress Note - Progress Note for Day of Date of Exam: 08/02/18 - Subjective Subjective: WAS ADMITTED FOR SYNCOPE, AMS, AND MALIGNANT HYPERTENSION. TODAY, SHE IS ALERT AND ORIENTED, LYING IN BED ON MORNING ROUNDS. SHE REPORTS WEAKNESS AND CONTINUES WITH DIZZINESS AT TIMES. ON EXAMINATION, HEART IS REGULAR IN RATE AND RHYTHM. BILATERAL LUNGS ARE NOTED WITH DIMINISHED LUNG SOUNDS THROUGHOUT. ABDOMEN IS ROUND, SOFT, AND NON-TENDER WITH NORMAL BOWEL SOUNDS NOTED IN ALL QUADRANTS. HER VITALS THIS MORNING WERE 98.3-70-20-96%-127/60. LABS WERE OBTAINED. SHE IS HEMODYNAMICALLY STABLE. A BRAIN CT WAS OBTAINED ON ADMISSION. IT REVEALED: Mild atrophy and moderate chronic microischemic changes the deep white matter which is unchanged with no acute abnormality seen. TODAY, WE PLAN TO OBTAIN AN ECHO, CAROTID DOPPLER, MRI WITHOUT CONTRAST OF THE BRAIN. WE WILL START METOPROLOL XL 25MG PO DAILY, ROSOUVASTATIN 10MG PO HS, AND RESUME HER OTHER ANTIHYPERTENSIVES. WE WILL DISCONTINUE THE PROPRANOLOL, SIMVASTATIN, AND MECLIZINE THAT SHE WAS TAKING AT HOME. OTHERWISE, WE PLAN TO FOLLOW UP WITH AM LABS AND CONTINUE TO MONITOR. - Past Medical Family Social History Past Med/Fam/Surg Hx: No changes since H&P Allergies: Allergies levofloxacin [From Levaquin] Adverse Reaction (Verified 01/11/18 12:22) - Review of Systems ROS: No change since H&P - Vital Signs and I&O's Vital Signs: Temperature 98.5 F Pulse Rate [Right Radial] 64 Respiratory Rate 18 Blood Pressure [Right Arm] 127/60 Blood Pressure [Left Arm] 181/82 Blood Pressure 181/82 O2 Sat by Pulse Oximetry 95 Intake and Output: Intake & Output 07/31/18 08/01/18 08/02/18 08/03/18 11:59 11:59 11:59 11:59 Intake Total 220 / 220 720 / 720 Balance 220 / 220 720 / 720 - Physical Exam Oriented: Normal Eyes: Normal Ear: Normal Nose: Normal Throat: Normal Respiratory: Diminished Cardiovascular: Normal : Normal Auscultation: Bowel Sounds: Normal Palpation: Normal Tenderness: Normal Skin: Normal Musculoskeletal: Normal Psychiatric: Normal Mood Description: Calm Affect: Normal Speech Pattern: Clear, Appropriate - Laboratory and Diagnostics Result Diagrams: 08/01/18 19:44 08/01/18 19:44 Labs: Laboratory WBC 5.7 X10^3/uL (3.6-10.0) 08/01/18 19:44 RBC 4.02 X10^6/uL (3.5-5.4) 08/01/18 19:44 Hgb 13.3 g/dL (12.0-16.0) 08/01/18 19:44 Hct 39.1 % (36.0-47.0) 08/01/18 19:44 MCV 97.3 fL (80.0-100.0) 08/01/18 19:44 MCH 33.2 pg (27.0-34.0) 08/01/18 19:44 MCHC 34.1 g/dL (33.0-35.0) 08/01/18 19:44 RDW 13.4 % (11.6-16.5) 08/01/18 19:44 Plt Count 247 X10^3/uL (150.0-450.0) 08/01/18 19:44 MPV 7.1 fL (7.4-11.0) L 08/01/18 19:44 Neut % (Auto) 54.8 % (42.0-75.0) 08/01/18 19:44 Lymph % (Auto) 31.5 % (21.0-51.0) 08/01/18 19:44 [place] % (Auto) 10.8 % (0.0-13.0) 08/01/18 19:44 Eos % (Auto) 2.0 % (0.9-2.9) 08/01/18 19:44 Baso % (Auto) 0.9 % (0.2-1.0) 08/01/18 19:44 Neut # (Auto) 3.1 x10^3/uL (2.2-4.8) 08/01/18 19:44 Lymph # (Auto) 1.8 X10^3/uL (1.3-2.9) 08/01/18 19:44 [place] # (Auto) 0.6 x10^3/uL (0.3-0.8) 08/01/18 19:44 Eos # (Auto) 0.1 x10^3/uL (0.0-0.2) 08/01/18 19:44 Baso # (Auto) 0.1 X10^3/uL (0.0-0.1) 08/01/18 19:44 Absolute Nucleated RBC 0.1 /100WBC 08/01/18 19:44 INR Target Range - 08/02/18 05:04 INR 4.30 (0.8-1.3) H 08/02/18 05:04 APTT 46.7 SECONDS (22.9-36.5) H 08/01/18 19:44 PTT Comment - 08/01/18 19:44 Sodium 138 mmol/L (136-145) 08/01/18 19:44 Corrected Sodium 139 mmol/L (136-145) 08/01/18 19:44 Potassium 3.7 mmol/L (3.5-5.1) 08/01/18 19:44 Chloride 101 mmol/L (98-107) 08/01/18 19:44 Carbon Dioxide 25.8 mmol/L (21-32) 08/01/18 19:44 BUN 8 mg/dL (7-18) 08/01/18 19:44 Creatinine 0.94 mg/dL (0.55-1.02) 08/01/18 19:44 Est GFR (MDRD) Af Amer > 60 (>60) 08/01/18 19:44 Est GFR (MDRD) Non-Af > 60 (>60) 08/01/18 19:44 Glucose 152 mg/dL (65-99) H 08/01/18 19:44 Calcium 8.8 mg/dL (8.5-10.1) 08/01/18 19:44 Corrected Calcium TNP 08/01/18 19:44 Total Bilirubin 0.30 mg/dL (0.2-1.0) 08/01/18 19:44 AST 24 Units/L (15-37) 08/01/18 19:44 ALT 31 Units/L (12-78) 08/01/18 19:44 Alkaline Phosphatase 88 Units/L (46-116) 08/01/18 19:44 Total Protein 7.0 g/dL (6.4-8.2) 08/01/18 19:44 Albumin 3.9 g/dL (3.4-5.0) 08/01/18 19:44 Globulin 3.1 g/dL (2.5-4.5) 08/01/18 19:44 Albumin/Globulin Ratio 1.3 Ratio (1.1-2.1) 08/01/18 19:44 - Plan (1) Syncope Status: Acute Qualifiers: Syncope type: unspecified Qualified Code(s): R55 - Syncope and collapse Plan: OBTAIN ECHO, OBTAIN CAROTIC, OBTAIN BRAIN MRI, CONTINUE TO MONITOR (2) Generalized weakness Status: Acute (3) Hypertension Status: Acute Qualifiers: Hypertension type: essential hypertension Qualified Code(s): I10 - Essential (primary) hypertension Plan: METOPROLOL XL 25MG PO DAILY, CONTINUE HOME MEDS
[2018-08-02] MEDS: PriLOSEC PO SCH (20:32)
[2018-08-02] MEDS ORDERED: CRESTOR TAB 10 MG PO SCH (21:00)
[2018-08-02] MEDS ORDERED: ARICEPT TAB 10 MG PO SCH (21:00)
[2018-08-02] MEDS: NS 1000 ML 1,000 ML IV SCH ×2 (23:48→23:49)
[2018-08-03 05:24] LABS: BASOPHILS % (AUTO) 0.5 % (0.2-1.0); EOSINOPHILS # (AUTO) 0.1 x10^3/uL (0.0-0.2); EOSINOPHILS % (AUTO) 2.1 % (0.9-2.9); HEMATOCRIT 34.8 % (36.0-47.0); HEMOGLOBIN 11.8 g/dL (12.0-16.0); LYMPHOCYTES # (AUTO) 1.9 X10^3/uL (1.3-2.9); MEAN CORPUSCULAR HEMOGLOBIN 33.5 pg (27.0-34.0); MEAN CORPUSCULAR VOLUME 98.5 fL (80.0-100.0); MEAN PLATELET VOLUME 7.1 fL (7.4-11.0); MONOCYTES # (AUTO) 0.5 x10^3/uL (0.3-0.8); MONOCYTES % (AUTO) 12.3 % (0.0-13.0); NEUTROPHILS # (AUTO) 1.7 x10^3/uL (2.2-4.8); NEUTROPHILS % (AUTO) 40.1 % (42.0-75.0); PLATELET COUNT 220 X10^3/uL (150.0-450.0); RED BLOOD COUNT 3.53 X10^6/uL (3.5-5.4); RED CELL DISTRIBUTION WIDTH 13.1 % (11.6-16.5); WHITE BLOOD COUNT 4.1 X10^3/uL (3.6-10.0)
[2018-08-03 05:32] LABS: ALANINE AMINOTRANSFERASE 26 Units/L (12-78); ALBUMIN 3.1 g/dL (3.4-5.0); ALKALINE PHOSPHATASE 72 Units/L (46-116); ASPARTATE AMINO TRANSFERASE 18 Units/L (15-37); BLOOD UREA NITROGEN 10 mg/dL (7-18); CALCIUM 8.2 mg/dL (8.5-10.1); CARBON DIOXIDE 31.8 mmol/L (21-32); CHLORIDE 109 mmol/L (98-107); COR CA(FOR HYPOALB) 8.9 mg/dL (8.5-10.1); COR NA(FOR HYPERGLY) 145 mmol/L (136-145); CREATININE 0.64 mg/dL (0.55-1.02); SODIUM 145 mmol/L (136-145); TOTAL PROTEIN 5.9 g/dL (6.4-8.2); eGFR NON BLACK RACES > 60 (>60)
[2018-08-03] MEDS: PriLOSEC PO SCH (08:36)
[2018-08-03] MEDS: TAB-A-VITE PO SCH (08:36)
[2018-08-03] MEDS: TOPROL XL PO SCH (08:37)
[2018-08-03] MEDS: MICRO K EXTEN CAP 10 MEQ PO SCH (08:37)
[2018-08-03] MEDS ORDERED: PAXIL PO SCH (09:00)
[2018-08-03] MEDS ORDERED: ZANAFLEX PO SCH (09:00)
[2018-08-03] MEDS ORDERED: NORVASC TAB 5 MG PO SCH (09:00)
[2018-08-03 12:10] VITALS: BP 137/63
== END 2018-08-03 13:00 | disposition home or self-care (01) ==
LOC: MED/SURG
PROVIDERS: ADMIT Internal Medicine; ATTEND Internal Medicine
DX: R41.82 Altered mental status, unspecified; Z79.01 Long term (current) use of anticoagulants; I10 Essential (primary) hypertension; R79.1 Abnormal coagulation profile; R55 Syncope and collapse; Z86.718 Personal history of other venous thrombosis and embolism; E11.65 Type 2 diabetes mellitus with hyperglycemia; R42 Dizziness and giddiness; R26.89 Other abnormalities of gait and mobility
CPT/HCPCS: 36415; 70450; 70551; 80053; 85025; 85610; 85730; 93306; 93880; 96367; 97161; A4222; G0378; J3490; J7030